=== PATIENT | female | born 1980 | race Caucasian/White ===

== ENCOUNTER 2023-03-04 11:35 | Outpatient (CLI) | payer BC, SELFPAY ==
--- NOTE | 2023-03-04 12:00 | CRLHL7_ITS ---
For Patients: As a result of the Century Cures Act, medical imaging exams and procedure reports are released immediately into your electronic medical record. You may view this report before your referring provider. If you have questions, please contact your health care provider. Clinical History: Bloating and diarrhea Radionuclide Dose: Nuclear medicine hepatobiliary scan with gallbladder ejection fraction post CCK protocol. 5.3 mCi 99m Tc Choletec; IV. 1.7 mcg Kinevac intravenously s. Comparison: None. Findings: Normal extraction and excretion of the radiopharmaceutical by the liver is present. There is prompt appearance of the common bile duct, followed by the gallbladder and small bowel. There is no enterogastric reflux. After the administration of CCK there is significant emptying of the gallbladder. Patient`s symptoms were not recorded. Gallbladder ejection fraction is 85 percent. Impression: Hyperkinetic gallbladder. Dictated by Brian Lou MD @ 03/04/2023 2:49:55 PM (Electronically Signed)
== END 2023-03-04 11:36 | disposition home or self-care (01) ==
LOC: NM 11:36
PROVIDERS: PCP Physician Assistant Medical; Visit Provider Physician Assistant Medical
DX: K52.9 Noninfective gastroenteritis and colitis, unspecified (principal); R14.0 Abdominal distension (gaseous)
CPT/HCPCS: 78227; A9537; J2805

== ENCOUNTER 2023-04-11 09:53 | Outpatient (CLI) | payer BC, SELFPAY | END 2023-04-11 09:54 | disposition home or self-care (01) | LOC: NFLDREF 04-15 10:38 | PROVIDERS: PCP Physician Assistant Medical; Referring Provider Physician Assistant Medical; Visit Provider Physician Assistant Medical | DX: K52.9 Noninfective gastroenteritis and colitis, unspecified (principal); R14.0 Abdominal distension (gaseous); Z13.220 Encounter for screening for lipoid disorders | CPT/HCPCS: 80053; 80061; 82150; 83690; 86258; 86364; 87338 ==

== ENCOUNTER 2023-04-18 12:46 | Outpatient (CLI) | payer BC, SELFPAY | END 2023-04-18 12:47 | disposition home or self-care (01) | LOC: NFLDREF 04-21 10:23 | PROVIDERS: PCP Physician Assistant Medical; Referring Provider Physician Assistant Medical; Visit Provider Physician Assistant Medical | DX: K52.9 Noninfective gastroenteritis and colitis, unspecified (principal); R14.0 Abdominal distension (gaseous) | CPT/HCPCS: 87338 ==

== ENCOUNTER 2023-05-16 11:14 | Outpatient (CLI) | payer BC, SELFPAY ==
--- NOTE | 2023-05-16 11:30 | MM_ITS ---
Patient: LIZBETH MEJIA Facility:?[facility] Patient ID:?[id number] Site Patient ID:?[id number]. Site :?1980 Study:?XRay-Breast Bilateral 3D-05/16/2023 11:41:03 AM Ordering Physician:Chitra Final Report: BILATERAL DIGITAL SCREENING MAMMOGRAM WITH TOMOSYNTHESIS AND COMPUTER-AIDED DETECTION CLINICAL HISTORY: Routine screening exam. COMPARISON: None. TECHNIQUE: Digital mammogram in CC and MLO projections including computer-aided detection (CAD). Tomosynthesis utilized. BREAST COMPOSITION: The breasts are extremely dense, which may limit the sensitivity of mammography. FINDINGS: RIGHT Breast: No suspicious findings. LEFT Breast: Asymmetric density upper outer quadrant 6 cm from the nipple. IMPRESSION: LEFT breast asymmetry/mass. RECOMMENDATIONS: Additional mammographic views of the LEFT breast including 3D spot compression CC/MLO. LEFT breast ultrasound may also be required. BI-RADS Category 0: Incomplete: Need Additional Imaging Evaluation and/or Prior Mammograms for Comparison [facility] will contact the patient for follow-up. A lay language report of this examination will be provided to the patient. Dictated by Damien Hill MD @ 05/19/2023 9:10:07 AM jj/Dictated by: Damien Hill MD @ 05/19/2023 9:10:00 AM Signed by:?Damien Hill MD @05/19/2023 11:14:52 AM (Electronic Signature)
== END 2023-05-16 11:15 | disposition home or self-care (01) ==
LOC: MAMMO 11:15
PROVIDERS: PCP Physician Assistant Medical; Visit Provider Physician Assistant Medical
DX: Z12.31 Encounter for screening mammogram for malignant neoplasm of breast (principal); N63.20 Unspecified lump in the left breast, unspecified quadrant
CPT/HCPCS: 77063; 77067

== ENCOUNTER 2023-06-04 09:37 | Outpatient (CLI) | payer BC, SELFPAY ==
--- NOTE | 2023-06-04 09:45 | MM_ITS ---
Patient: LIZBETH MEJIA Facility:?[facility] Patient ID:?[id number] Site Patient ID:?[id number]. Site :?1980 Study:?XRay-Breast Left 3D W/CAD-06/04/2023 10:04:18 AM Ordering Physician:?Yasmin Garza Final Report: DIGITAL DIAGNOSTIC LEFT MAMMOGRAM USING TOMOSYNTHESIS AND COMPUTER-AIDED DETECTION LEFT BREAST ULTRASOUND CLINICAL HISTORY: LEFT breast mass/asymmetry. COMPARISON: 05/16/2023. TECHNIQUE: Digital LEFT mammogram in two projections. Tomosynthesis and CAD utilized. Real-time ultrasound imaging of LEFT breast with imaging documentation. Scanning was performed by both the technologist and the radiologist. BREAST COMPOSITION: The breast is heterogeneously dense, which may obscure small masses. FINDINGS: 3D spot compression CC/MLO LEFT breast mammogram images submitted. Decreased conspicuity of the previously noted asymmetric density. No architectural distortion or suspicious calcifications. Targeted LEFT breast ultrasound performed at 2 o`clock 5 cm from the nipple. Dense fibroglandular tissue is present along with benign fibrocystic change. No suspicious findings. IMPRESSION: No evidence of malignancy. RECOMMENDATIONS: Annual BILATERAL screening mammography. Results and recommendations discussed with the patient. BI-RADS Category 2: Benign A lay language report of this examination will be provided to the patient. Dictated by Damien Hill MD @ 06/04/2023 11:39:30 AM jj/Dictated by: Damien Hill MD @ 06/04/2023 11:39:00 AM Signed by:?Damien Hill MD @06/04/2023 2:42:49 PM (Electronic Signature)
--- NOTE | 2023-06-04 10:15 | US_ITS ---
Patient: LIZBETH MEJIA Facility:?[facility] Patient ID:?[id number] Site Patient ID:?[id number]. Site :?1980 Study:?US-Breast Left -06/04/2023 10:09:54 AM Ordering Physician:OLMAN Final Report: PLEASE SEE DIGITAL DIAGNOSTIC LEFT MAMMOGRAM PERFORMED SAME DAY CRL:mazin retana/Dictated by: Damien Hill MD @ 06/04/2023 11:39:00 AM Signed by:?Damien Hill MD @06/04/2023 2:42:51 PM (Electronic Signature)
== END 2023-06-04 09:38 | disposition home or self-care (01) ==
LOC: MAMMO 09:38
PROVIDERS: PCP Physician Assistant Medical; Visit Provider Physician Assistant Medical
DX: N63.20 Unspecified lump in the left breast, unspecified quadrant (principal); R92.8 Other abnormal and inconclusive findings on diagnostic imaging of breast
CPT/HCPCS: 76642; 77065; G0279

== ENCOUNTER 2023-06-26 15:52 | Outpatient (CLI) | payer BC, SELFPAY ==
[2023-06-27 00:22] LABS: Chlamydia DNA Amplified* NOT DETECTED (No Detected); GC DNA Amplified* NOT DETECTED (No Detected)
== END 2023-06-26 15:53 | disposition home or self-care (01) ==
PROVIDERS: PCP Physician Assistant Medical; Visit Provider Physician Assistant Medical
DX: Z11.3 Encounter for screening for infections with a predominantly sexual mode of transmission (principal)
CPT/HCPCS: 87491; 87591

== ENCOUNTER 2024-11-02 14:39 | Outpatient (CLI) | payer BC, SELFPAY ==
--- NOTE | 2024-11-02 15:00 | CRLHL7_ITS ---
For Patients: As a result of the Century Cures Act, medical imaging exams and procedure reports are released immediately into your electronic medical record. You may view this report before your referring provider. If you have questions, please contact your health care provider. INDICATION: BILATERAL SCREENING MAMMOGRAM, ASYMPTOMATIC 43 Y/O FEMALE COMPARISON: 06/04/2023, 05/16/2023 TECHNIQUE: Digital mammogram in CC and MLO projections including computer-aided detection (CAD) and tomosynthesis. BREAST COMPOSITION: The breasts are heterogeneously dense, which may obscure small masses. FINDINGS: No suspicious findings. ASSESSMENT: BI-RADS 1 Negative RECOMMENDATION: Annual screening mammogram. A lay language report of this examination will be provided to the patient. Dictated by: Irina Brewer MD @ 11/03/2024 09:48:57 (Electronically Signed)
== END 2024-11-02 14:40 | disposition home or self-care (01) ==
LOC: MAMMO 14:39
PROVIDERS: PCP Physician Assistant Medical; Visit Provider Physician Assistant Medical
DX: Z12.31 Encounter for screening mammogram for malignant neoplasm of breast (principal); R92.333 Mammographic heterogeneous density, bilateral breasts
CPT/HCPCS: 77063; 77067

== ENCOUNTER 2024-12-02 13:29 | Outpatient (CLI) | payer BC, SELFPAY | END 2024-12-02 13:30 | disposition home or self-care (01) | PROVIDERS: PCP Physician Assistant Medical; Visit Provider Physician Assistant Medical | DX: Z00.00 Encounter for general adult medical examination without abnormal findings (principal) | CPT/HCPCS: 80053; 80061; 84443 ==

== ENCOUNTER 2025-01-07 11:28 | Outpatient (CLI) | payer BC, SELFPAY ==
--- NOTE | 2025-01-07 13:23 | P.ANES_ITS ---
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
--- NOTE | 2025-01-07 13:23 | W.ANESCHARGE ---
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
== END 2025-01-07 11:29 | disposition home or self-care (01) ==
LOC: OP CLINIC 11:28
PROVIDERS: PCP Physician Assistant Medical; Visit Provider Surgery
DX: K52.9 Noninfective gastroenteritis and colitis, unspecified (principal); R10.13 Epigastric pain; R14.0 Abdominal distension (gaseous); D12.3 Benign neoplasm of transverse colon; K64.4 Residual hemorrhoidal skin tags
CPT/HCPCS: 00813; 43239; 45380; 45385; 88305; J2704; J3490

== ENCOUNTER 2025-01-31 06:31 | Emergency (ER) | payer BC, SELFPAY ==
--- OUTSIDE RECORDS SUMMARY | 2025-01-24 08:35 | XMS_ITS | Continuity of Care Document ---
Author Organization [facility] Address [address] [address] [place] [address] Phone Care Team Providers Care Attic Blower Name Role Phone Michel Baez MD Unavailable Unavailabl e Advance Directives Directive Yes / No Effective Date File Name No Information Encounters Encounter Description Practice Location Reason(s) For Visit Diagnoses Date Provider Providers Copied on Encounter [facility], [address] [address], [place], [place], [id number], [place] tel:[phone] [facility] No Information Stepan Pearson. [address] [facility], [facility] [address], [place], [place], [id number], [place]. tel:[phone] Family History Family Member Type Diagnosis Age At Onset No Information Payers Payer name Insurance type Covered democrat ID Authoriza tion(s) No Information Social History Type Description Quantity Date Captured Comments Sex Female Smoking Status No Information Chief Complaint And Reason For Visit No Information Reason For Referral Reason For Referral No Information Plan Of Treatment Date Type Action Status Appointment Jenna Carbone BOOKED History Of Present Illness Encounter Date Complaint History Of Prese nt Illness No Information Functional Status Date Functional Assessmen t No Information Instructions Date Instruction Additional Infor mation No Information Assessments Type Assessment Date No Information Patient Care Teams Name Effective Dates (start - stop) Status Members No Information
--- OUTSIDE RECORDS SUMMARY | 2025-01-24 08:35 | XMS_ITS | Continuity of Care Document ---
Author Organization [facility] Address [address] [address] [place] [address] Phone Care Team Providers Care Assistant Manager Bilingual Name Role Phone Michel Baez MD Unavailable Unavailabl e Advance Directives Directive Yes / No Effective Date File Name No Information Encounters Encounter Description Practice Location Reason(s) For Visit Diagnoses Date Provider Providers Copied on Encounter [facility], [address] [address], [place], [place], [id number], [place] tel:[phone] [facility] No Information Stepan Pearson. [address] [facility], [facility] [address], [place], [place], [id number], [place]. tel:[phone] Family History Family Member Type Diagnosis Age At Onset No Information Payers Payer name Insurance type Covered alliance party ID Authoriza tion(s) No Information Social History [...]
--- OUTSIDE RECORDS SUMMARY | 2025-01-24 08:35 | XMS_ITS | Continuity of Care Document ---
Author Organization [facility] Address [address] [address] [place] [address] Phone Care Team Providers Care Freelance Copywriter Name Role Phone Michel Baez MD Unavailable Unavailabl e Advance Directives Directive Yes / No Effective Date File Name No Information Encounters Encounter Description Practice Location Reason(s) For Visit Diagnoses Date Provider Providers Copied on Encounter [facility], [address] [address], [place], [place], [id number], [place] tel:[phone] [facility] No Information Stepan Pearson. [address] [facility], [facility] [address], [place], [place], [id number], [place]. tel:[phone] Family History Family Member Type Diagnosis Age At Onset No Information Payers Payer name Insurance type Covered libertarian ID Authoriza tion(s) No Information Social History [...]
--- OUTSIDE RECORDS SUMMARY | 2025-01-24 08:35 | XMS_ITS | Continuity of Care Document ---
Author Organization [facility] Address [address] [address] [place] [address] Phone Care Team Providers Care Fruit Tester Name Role Phone Michel Baez MD Unavailable Unavailabl e Advance Directives Directive Yes / No Effective Date File Name No Information Encounters Encounter Description Practice Location Reason(s) For Visit Diagnoses Date Provider Providers Copied on Encounter [facility], [address] [address], [place], [place], [id number], [place] tel:[phone] [facility] No Information Stepan Pearson. [address] [facility], [facility] [address], [place], [place], [address], [place]. tel:[phone] Family History Family Member Type Diagnosis Age [...]
[2025-01-31] VITALS (7 sets, daily range): BP systolic 113–131; BP diastolic 72–82; PULSE 56–77; RESP 11–42; TEMP 36.7; O2SAT 98–100; BMI 28.3
--- NOTE | 2025-01-31 06:46 | ED.DIZZY ---
HPI - Dizziness General Time Seen by Provider: 06:46 <Filomena Dumont MD - Last Filed: 01/31/25 08:14> Date Seen: 01/31/25 <Filomena Dumont MD - Last Filed: 01/31/25 08:14> Chief Complaint: Dizziness/Vertigo <Filomena Dumont MD - Last Filed: 01/31/25 08:14> Stated Complaint: Dizziness, blurred vision <Filomena Dumont MD - Last Filed: 01/31/25 08:14> Time Seen by Provider: 01/31/25 06:45 <Filomena Dumont MD - Last Filed: 01/31/25 08:14> Source: patient <Filomena Dumont MD - Last Filed: 01/31/25 08:14> Mode of arrival: ambulatory <Filomena Dumont MD - Last Filed: 01/31/25 08:14> History of Present Illness HPI Narrative: Jenna is a 44 yo female who has a past medical history IBS who presents to the emergency department for evaluation of dizziness. Patient states that she woke up this morning around 5:30 a.m. to her alarm. Patient states when she woke up she noticed a little blurriness of her vision in her left eye as well as a little bit dizziness and unsteadiness. Patient reports that she has an extensive family history of strokes so came in for evaluation. Patient denies any headache, eye pain, vision loss, weakness, paresthesias, chest pain, shortness of breath, abdominal pain, nausea, vomiting, diarrhea. Patient reports some improvement of symptoms since arrival. Patient wears glasses. Patient does report that approximately 1 week ago she was started on 2 new medications including control pills as well as dicyclomine (for IBS). No other complaints. <Filomena Dumont MD - Last Filed: 01/31/25 08:14> Related Data Home Medications: Previous Rx's ?Medication ?Instructions ?Recorded desogestrel 0.15 mg-ethinyl 1 tab PO QDAY #84 tabs 01/21/25 estradiol 0.03 mg tablet (Apri) dicyclomine 10 mg capsule 10 mg PO TID PRN abdominal pain 11/07/25 #60 caps <Filomena Dumont MD - Last Filed: 01/31/25 08:14> Allergies/Adverse Reactions: Allergies Allergy/AdvReac Type Severity Reaction Status Date / Time No Known Drug Allergies Allergy Verified 01/31/25 06:48 <Filomena Dumont MD - Last Filed: 01/31/25 08:14> Review of Systems Narrative: Past medical history, past surgical history, medications, allergies, family history, and social history were reviewed with the patient. No additional pertinent items. A medically appropriate review of systems was performed with pertinent positives and negatives noted in HPI, all other systems negative. <Filomena Dumont MD - Last Filed: 01/31/25 08:14> PFSH PFS Medical History: Medical History (Updated 01/31/25 @ 08:14 by Filomena Dumont MD) On Depo-Provera for contraception ?Z30.42 - Encounter for surveillance of injectable contraceptive (ICD-10) Hx of ?Z87.59 - Personal history of other complications of , childbirth and the puerperium (ICD-10) <Filomena Dumont MD - Last Filed: 01/31/25 08:14> Surgical History: Surgical History (Updated 02/20/23 @ 15:45 by Yasmin Garza PA-C) Hx of wisdom tooth extraction ?K08.409 - Partial loss of teeth, unspecified cause, unspecified class (ICD-10) <Filomena Dumont MD - Last Filed: 01/31/25 08:14> Family History: Family History (Updated 12/02/24 @ 13:25 by Yasmin Garza PA-C) Mother No problems noted. Father High blood pressure Bone cancer, Onset Age: 73 Alcohol dependence Liver disease Aunt Breast cancer, Onset Age: 60 Brother Alcohol dependence <Filomena Dumont MD - Last Filed: 01/31/25 08:14> Social History: Social History (Updated 12/06/24 @ 09:45 by Ciera MILLER) Narrative: smoker (1 cigarettes daily). 16 yo-28 and then quit; started again 2021 Alcohol- 4 drinks per weekend. Denies recreational drugs (August 2022). 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[employer]) What is your current living situation?: I presently have a place to live Problems where you live: no known problems In the past 12 months, utilities in danger of being shut off: no In past 12 months, lack of transportation kept you from medical appts, meetings, work, or getting things needed for daily living: no In the past 12 mos, have been you worried that your food would run out before you had money to buy more?: never true In the past 12 mos, the food you bought just didn't last and you didn't have money to buy more?: never true Smoking Status: Current every day smoker Do you use any of these nicotine containing products: None Second hand tobacco smoke exposure: No How often do you have a drink containing alcohol: 2-4 times a month How often do you have six or more drinks on one occasion: Never AUDIT-C Alcohol total score: 2 Non-prescribed substance use: denies use Are you now , , , , never or living with a partner: Social isolation score (0-1 are the most socially isolated patients): 0 How often does anyone, including family, friends and others, physically hurt you: never How often does anyone, including family, friends and others, insult or talk down to you: never How often does anyone, including family, friends and others, threaten you with harm: never How often does anyone, including family, friends and others, scream or curse at you: never Gender Identity: female <Filomena Dumont MD - Last Filed: 01/31/25 08:14> Exam Narrative: Exam Narrative: General: Afebrile, in distress HEENT: Normocephalic, atraumatic, PERRL, EOMI, conjunctiva normal. Visual acuity bilateral 20/25; Left eye 20/30; Right eye 20/30, MMM Neck: non-tender, supple Cardio: regular rate. regular rhythm Resp: Normal work of breathing, no respiratory distress, lungs clear bilaterally, no wheezing, rhonchi, rales Chest/Back: no visual signs of trauma, no midline tenderness, no CVA tenderness Abdomen: soft, non distension, no tenderness, no peritoneal signs Neuro: alert and fully oriented. CN II-XII intact. Normal strength and sensation in all extremities. Normal gait. MSK: no deformities. Normal range of motion Integumentary/Skin: no rash visualized, normal color Psych: normal affect, normal behavior <Filomena Dumont MD - Last Filed: 01/31/25 08:14> Const: Vital Signs, click to edit/add: Vital Signs - 24 hr 01/31/25 06:45 01/31/25 08:13 Temperature 98.0 F Pulse Rate [Pulse Oximeter] 77 56 L Respiratory Rate 16 16 Blood Pressure [Ri ght Upper Arm] 131/82 113/72 Pulse Oximetry 100 98 Oxygen Delivery Me thod Room Air Room Air <Filomena Dumont MD - Last Filed: 01/31/25 08:14> Vital Signs, click to edit/add: Vital Signs - 24 hr 01/31/25 06:45 01/31/25 08:13 Temperature 98.0 F Pulse Rate [Pulse Oximeter] 77 56 L Respiratory Rate 16 16 Blood Pressure [Ri ght Upper Arm] 131/82 113/72 Pulse Oximetry 100 98 Oxygen Delivery Me thod Room Air Room Air <Adrienne Mary MD - Last Filed: 01/31/25 10:06> Course Reevaluation(s) Time of Reevaluation #1: 09:55 <Adrienne Mary MD - Last Filed: 01/31/25 10:06> Reevaluation #1: Patient is updated on her normal CT angiography an MR imaging. We are going to plan as Dr. Dumont recommended, discharged with outpatient follow-up with dilated eye exam/optometry or ophthalmology exam. <Adrienne Mary MD - Last Filed: 01/31/25 10:06> Vital Signs Vital signs: Initial Vital Signs Temperature 98.0 F 01/31/25 06:45 Temperature Source Temporal Artery Scan 01/31/25 06:45 Pulse Rate 77 01/31/25 06:45 Respiratory Rate 16 01/31/25 06:45 Blood Pressure 131/82 01/31/25 06:45 Blood Pressure Mean 98 01/31/25 06:45 Blood Pressure Position Sitting 01/31/25 06:45 Pulse Oximetry 100 01/31/25 06:45 Oxygen Delivery Method Room Air 01/31/25 06:45 Vital Signs Temperature 98.0 F 01/31/25 06:45 Pulse Rate 77 01/31/25 06:45 Respiratory Rate 16 01/31/25 06:45 Blood Pressure 131/82 01/31/25 06:45 Pulse Oximetry 100 01/31/25 06:45 Oxygen Delivery Method Room Air 01/31/25 06:45 Temperature 98.0 F 01/31/25 06:45 Pulse Rate 56 L 01/31/25 08:13 Respiratory Rate 16 01/31/25 08:13 Blood Pressure 113/72 01/31/25 08:13 Pulse Oximetry 98 01/31/25 08:13 Oxygen Delivery Method Room Air 01/31/25 08:13 <Filomena Dumont MD - Last Filed: 01/31/25 08:14> Initial Vital Signs Temperature 98.0 F 01/31/25 06:45 Temperature Source Temporal Artery Scan 01/31/25 06:45 Pulse Rate 77 01/31/25 06:45 Respiratory Rate 16 01/31/25 06:45 Blood Pressure 131/82 01/31/25 06:45 Blood Pressure Mean 98 01/31/25 06:45 Blood Pressure Position Sitting 01/31/25 06:45 Pulse Oximetry 100 01/31/25 06:45 Oxygen Delivery Method Room Air 01/31/25 06:45 Vital Signs Temperature 98.0 F 01/31/25 06:45 Pulse Rate 77 01/31/25 06:45 Respiratory Rate 16 01/31/25 06:45 Blood Pressure 131/82 01/31/25 06:45 Pulse Oximetry 100 01/31/25 06:45 Oxygen Delivery Method Room Air 01/31/25 06:45 Temperature 98.0 F 01/31/25 06:45 Pulse Rate 56 L 01/31/25 08:13 Respiratory Rate 16 01/31/25 08:13 Blood Pressure 113/72 01/31/25 08:13 Pulse Oximetry 98 01/31/25 08:13 Oxygen Delivery Method Room Air 01/31/25 08:13 <Adrienne Mary MD - Last Filed: 01/31/25 10:06> MDM - Dizziness MDM Narrative Medical decision making narrative: Jenna is a 44 yo female who presents to the emergency department for evaluation of dizziness. Upon arrival patient is nontoxic appearing, afebrile, in distress. Differential diagnosis includes but is not limited to CVA versus intracranial hemorrhage versus TIA versus metabolic/electrolyte versus medication side effect versus migraine among others. Upon arrival EKG, comprehensive labs, CT imaging performed. I reviewed EKG which demonstrates normal sinus rhythm with sinus arrhythmia, normal axis, ventricular rate of 63 beats per minute, QTC 411, no acute ischemic change, no prior EKG to compare to. Comprehensive labs unremarkable with no leukocytosis white blood cell count 5.8, hemoglobin 15, INR 0.96, no acute metabolic electrolyte abnormality, negative troponin. I personally reviewed and interpreted CT which demonstrates no acute intracranial hemorrhage, no evidence of mass effect, hemorrhage, edema. I discussed results with patient and on re-evaluation patient is resting comfortably, reports improvement/resolution of symptoms. Will proceed for further stroke/TIA evaluation with CTA of the head and neck as well as MRI. Patient signed out to morning provider pending imaging, re-evaluation, final disposition. <Filomena Dumont MD - Last Filed: 01/31/25 08:14> Medical Records Attestation: I reviewed the patient's medical records. <Filomena Dumont MD - Last Filed: 01/31/25 08:14> Lab Data Attestation: I reviewed the patient's lab results. <Filomena Dumont MD - Last Filed: 01/31/25 08:14> Labs: Lab Results 01/31/25 Range/Units 07:19 WBC 5.87 (4.50-11.00) K/uL RBC 4.92 (4.00-5.20) m/uL Hgb 15.0 (12.0-16.0) gm/dL Hct 45.9 (33.0-51.0) % MCV 93 (80-100) fL MCH 31 (26-34) pg MCHC 33 (32-36) gm/dL RDW Coeff of Yan 12.9 (11.5-15.5) % Plt Count 265 (140-440) K/uL Neut % (Auto) 62.6 (42.0-72.0) % Lymph % (Auto) 23.7 (20-44) % [place] % (Auto) 6.3 (0.0-11.0) % Eos % (Auto) 6.1 (0.0-7.0) % Baso % (Auto) 1.0 (0.0-3.0) % Neut # (Auto) 3.67 (1.7-7.0) K/uL Lymph # (Auto) 1.39 (0.90-2.90) K/uL [place] # (Auto) 0.40 (0.00-0.90) K/UL Eos # (Auto) 0.36 (0.00-0.50) K/uL Baso # (Auto) 0.06 (0.00-0.30) K/uL Abs Immat Gran (auto) 0.02 (0.00-0.30) K/uL Imm/Tot Granulo (auto) 0.3 % INR 0.96 (0.91-1.10) Sodium 140 (135-149) mmol/L Potassium 4.3 (3.6-5.1) mmol/L Chloride 108 (96-114) mmol/L Carbon Dioxide 23 (20-32) mmol/L Anion Gap 9 (7-15) mEq/L BUN 5 (5-24) mg/dL Creatinine 0.7 (0.5-1.5) mg/dL Estimated Creat Clear 86.72 Estimated GFR 108 ml/min Glucose 89 (60-115) mg/dL Calcium 9.3 (8.4-10.6) mg/dL Total Bilirubin 0.8 (0.1-1.5) mg/dL AST 33 (12-35) U/L ALT 18 (4-35) U/L Alkaline Phosphatase 58 (40-150) U/L Troponin I < 0.01 (0.01-0.04) ng/mL Total Protein 7.7 (6.0-8.3) g/dL Albumin 4.5 (3.3-5.0) g/dL <Filomena Dumont MD - Last Filed: 01/31/25 08:14> Lab Results 01/31/25 Range/Units 07:19 WBC 5.87 (4.50-11.00) K/uL RBC 4.92 (4.00-5.20) m/uL Hgb 15.0 (12.0-16.0) gm/dL Hct 45.9 (33.0-51.0) % MCV 93 (80-100) fL MCH 31 (26-34) pg MCHC 33 (32-36) gm/dL RDW Coeff of Yan 12.9 (11.5-15.5) % Plt Count 265 (140-440) K/uL Neut % (Auto) 62.6 (42.0-72.0) % Lymph % (Auto) 23.7 (20-44) % [place] % (Auto) 6.3 (0.0-11.0) % Eos % (Auto) 6.1 (0.0-7.0) % Baso % (Auto) 1.0 (0.0-3.0) % Neut # (Auto) 3.67 (1.7-7.0) K/uL Lymph # (Auto) 1.39 (0.90-2.90) K/uL [place] # (Auto) 0.40 (0.00-0.90) K/UL Eos # (Auto) 0.36 (0.00-0.50) K/uL Baso # (Auto) 0.06 (0.00-0.30) K/uL Abs Immat Gran (auto) 0.02 (0.00-0.30) K/uL Imm/Tot Granulo (auto) 0.3 % INR 0.96 (0.91-1.10) Sodium 140 (135-149) mmol/L Potassium 4.3 (3.6-5.1) mmol/L Chloride 108 (96-114) mmol/L Carbon Dioxide 23 (20-32) mmol/L Anion Gap 9 (7-15) mEq/L BUN 5 (5-24) mg/dL Creatinine 0.7 (0.5-1.5) mg/dL Estimated Creat Clear 86.72 Estimated GFR 108 ml/min Glucose 89 (60-115) mg/dL Calcium 9.3 (8.4-10.6) mg/dL Total Bilirubin 0.8 (0.1-1.5) mg/dL AST 33 (12-35) U/L ALT 18 (4-35) U/L Alkaline Phosphatase 58 (40-150) U/L Troponin I < 0.01 (0.01-0.04) ng/mL Total Protein 7.7 (6.0-8.3) g/dL Albumin 4.5 (3.3-5.0) g/dL <Adrienne Mary MD - Last Filed: 01/31/25 10:06> Imaging Data CT scan - head: Attestation: I have reviewed the pertinent imaging results. <Filomena Dumont MD - Last Filed: 01/31/25 08:14> Radiologist's impression: INDICATION: Dizziness. Visual changes. COMPARISON: None TECHNIQUE: CT examination of the head was performed as axial sections without intravenous contrast. Images were obtained from the vertex of the skull through the skull base. Please note that all CT scans at this facility use dose modulation, iterative reconstruction, and/or weight-based dosing when appropriate to reduce radiation dose to as low as reasonably achievable. FINDINGS: The brain shows no sign of mass lesion, mass effect, hemorrhage, or edema. The ventricles and sulci are normal in appearance for the patient`s age. The visualized portions of the orbits are normal in appearance. The osseous structures are normal in their appearance with no sign of abnormality in the skull base or calvarium. IMPRESSION: Normal unenhanced head CT. Please note that all CT scans at this facility use dose modulation, iterative reconstruction, and/or weight-based dosing when appropriate to reduce radiation dose to as low as reasonably achievable. Dictated by Michel Mckee MD @ 01/31/2025 7:43:38 AM <Filomena Dumont MD - Last Filed: 01/31/25 08:14> CT- Other: Attestation: I have reviewed the pertinent imaging results. <Adrienne Mary MD - Last Filed: 01/31/25 10:06> Radiologist's impression: Patient: JENNA MEJIA Facility:?[facility] Patient ID:?[id number] Site Patient ID:?[id number]. Site :?1980 Study:?CT-Neck Angio W/IV-01/31/2025 9:09:55 AM Ordering Physician:Mauricio Deleon Preliminary Report: COMPARISON: None. IMPRESSION: CTA head: No large vessel occlusion or significant aneurysm. CTA neck: No sign of dissection or critical stenosis. Dictated by Pamela Hargrove MD @ 01/31/2025 9:30:46 AM Read by:?Pamela Hargrove MD @01/31/2025 9:31:13 AM <Adrienne Mary MD - Last Filed: 01/31/25 10:06> MR Brain: Attestation: I have reviewed the pertinent imaging results. <Adrienne Mary MD - Last Filed: 01/31/25 10:06> Radiologist's impression: Patient: JENNA MEJIA Facility:?[facility] Patient ID:?[id number] Site Patient ID:?[id number]. Site :?1980 Study:?MRI-Head WO-01/31/2025 9:34:42 AM Ordering Physician:Mauricio Deleon Final Report: Indication: episode L visual disturbance, dizziness Technique: Noncontrast sagittal T1 weighted, axial FLAIR, axial T2 weighted, and axial diffusion weighted sequences are provided. Comparison: CT 01/31/2025 Findings: The ventricles, sulci and gyri are normal size, shape and contour for age. The midline structures are centrally located with no evidence of shift. The pituitary gland, optic chiasm, pineal gland and cerebellar tonsils are unremarkable. There are no suspicious intra or extra-axial fluid collections. No region of restricted diffusion. Expected flow voids in the cavernous carotids and basilar artery. Impression: Unremarkable noncontrast MRI of the head. Dictated by Damien Bowens MD @ 01/31/2025 9:39:44 AM (Electronic Signature) <Adrienne Mary MD - Last Filed: 01/31/25 10:06> Discharge Plan Discharge Clinical Impression: Blurred vision, left eye, Dizziness <Filomena Dumont MD - Last Filed: 01/31/25 08:14> Patient Disposition: Home, Self-Care <Filomena Dumont MD - Last Filed: 01/31/25 08:14> Condition: Stable <Filomena Dumont MD - Last Filed: 01/31/25 08:14> Instructions: Blurred Vision (ED), Dizziness (ED) <Filomena Dumont MD - Last Filed: 01/31/25 08:14> Additional Instructions: Your CT imaging an MR imaging of the brain and vessels are not showing any etiology as the cause of your symptoms. It is recommended that you get a follow-up Optometry or Ophthalmology exam, call provider of your choice. <Filomena Dumont MD - Last Filed: 01/31/25 08:14> Prescriptions: No Action desogestrel-ethinyl estradiol [Apri] 0.15-0.03 mg tablet 1 tab PO QDAY Qty: 84 0RF dicyclomine 10 mg capsule 10 mg PO TID PRN (Reason: abdominal pain) Qty: 60 1RF Rx Instructions: one capsule 3 times daily for bowel spasm <Filomena Dumont MD - Last Filed: 01/31/25 08:14> Follow Up/Referrals: Yasmin Garza PA-C [Primary Care Provider, Family Practice] <Filomena Dumont MD - Last Filed: 01/31/25 08:14> Stand Alone Forms: MyHealth Info Instructions <Filomena Dumont MD - Last Filed: 01/31/25 08:14>
--- NOTE | 2025-01-31 07:12 | CRLHL7_ITS ---
For Patients: As a result of the Century Cures Act, medical imaging exams and procedure reports are released immediately into your electronic medical record. You may view this report before your referring provider. If you have questions, please contact your health care provider. INDICATION: Dizziness. Visual changes. COMPARISON: None TECHNIQUE: CT examination of the head was performed as axial sections without intravenous contrast. Images were obtained from the vertex of the skull through the skull base. Please note that all CT scans at this facility use dose modulation, iterative reconstruction, and/or weight-based dosing when appropriate to reduce radiation dose to as low as reasonably achievable. FINDINGS: The brain shows no sign of mass lesion, mass effect, hemorrhage, or edema. The ventricles and sulci are normal in appearance for the patient`s age. The visualized portions of the orbits are normal in appearance. The osseous structures are normal in their appearance with no sign of abnormality in the skull base or calvarium. IMPRESSION: Normal unenhanced head CT. Please note that all CT scans at this facility use dose modulation, iterative reconstruction, and/or weight-based dosing when appropriate to reduce radiation dose to as low as reasonably achievable. Dictated by Michel Mckee MD @ 01/31/2025 7:43:38 AM (Electronically Signed)
[2025-01-31 07:24] LABS: Hematocrit* 45.9 % (33.0-51.0); Hemoglobin* 15.0 gm/dL (12.0-16.0); Immature Granulocytes Abs Auto 0.02 K/uL (0.00-0.30); Immature Granulocytes Pct Auto 0.3 %; Lymphocytes Absolute Auto 1.39 K/uL (0.90-2.90); Mean Corpuscular HGB Conc 33 gm/dL (32-36); Mean Corpuscular Hemoglobin 31 pg (26-34); Mean Corpuscular Volume 93 fL (80-100); RDW Coefficient of Variation % 12.9 % (11.5-15.5); Red Blood Count* 4.92 m/uL (4.00-5.20); White Blood Count* 5.87 K/uL (4.50-11.00)
[2025-01-31 07:26] LABS: Slide Review Reflex No
[2025-01-31 07:41] LABS: Albumin* 4.5 g/dL (3.3-5.0); Chloride* 108 mmol/L (96-114)
[2025-01-31 07:42] LABS: Potassium* 4.3 mmol/L (3.6-5.1); Sodium* 140 mmol/L (135-149)
[2025-01-31 07:44] LABS: Alanine Aminotransferase* 18 U/L (4-35); Anion Gap 9 mEq/L (7-15); Aspartate Amino Transferase* 33 U/L (12-35); Blood Urea Nitrogen* 5 mg/dL (5-24); Carbon Dioxide* 23 mmol/L (20-32); Creatinine* 0.7 mg/dL (0.5-1.5); Est. Creatinine Clearance* 86.72; Estimated Glomerular Filt Rate 108 ml/min; INR 0.96 (0.91-1.10); Prothrombin Time 13.6 Seconds
[2025-01-31 07:45] LABS: Alkaline Phosphatase* 58 U/L (40-150); Bilirubin Total* 0.8 mg/dL (0.1-1.5); Calcium* 9.3 mg/dL (8.4-10.6); Glucose* 89 mg/dL (60-115); Total Protein* 7.7 g/dL (6.0-8.3)
--- NOTE | 2025-01-31 08:08 | CT_ITS ---
Patient: LIZBETH MEJIA Facility:?[facility] Patient ID:?[id number] Site Patient ID:?[id number]. Site :?1980 Study:?CT-Neck Angio W/IV-01/31/2025 9:09:55 AM Ordering Physician:Mauricio Deleon Final Report: DATE: 01/31/2025 CLINICAL HISTORY: Patient with dizziness and visual disturbances. TECHNIQUE: Standard helical CT image acquisition through the head and neck was performed after intravenous contrast bolus enhancement. 2D and 3D MIP images for post- processing were performed and interpreted on an independent workstation and 3D images were permanently archived. COMPARISON: CT same day. FINDINGS: The origins of the great vessels from the aortic arch are patent. The origin of the right vertebral artery is patent. The origin of the left vertebral artery is patent. The common carotid arteries are patent There is no stenosis at the origin of the right internal carotid artery. There is no stenosis at the origin of the left internal carotid artery. The rest of the cervical segments of the internal carotid arteries are patent up to their intracranial segments. The intracranial segments of the internal carotid arteries are patent. The left vertebral artery is dominant. The cervical segments of the vertebral arteries are patent. The intracranial segments of the vertebral arteries are patent. The middle cerebral arteries are normal without aneurysm or proximal occlusion identified. The anterior cerebral arteries are normal without aneurysm or proximal occlusion identified. The anterior communicating artery is well visualized and appears normal. The basilar artery is normal without aneurysm or occlusion. The posterior cerebral arteries are normal without aneurysm or proximal occlusion. There is normal opacification of major intracranial venous structures. The visualized lung apices are unremarkable The thyroid gland is unremarkable. The soft tissues of the neck are unremarkable. There are degenerative changes in the cervical spine. IMPRESSION: Normal CT angiogram of the head and neck. Please note that all CT scans at this facility use dose modulation, iterative reconstruction, and/or weight-based dosing when appropriate to reduce radiation dose to as low as reasonably achievable. Dictated by Veronica Coley MD @ 01/31/2025 6:17:18 PM (Electronic Signature)
--- NOTE | 2025-01-31 08:08 | CRLHL7_ITS ---
For Patients: As a result of the Century Cures Act, medical imaging exams and procedure reports are released immediately into your electronic medical record. You may view this report before your referring provider. If you have questions, please contact your health care provider. Indication: episode L visual disturbance, dizziness Technique: Noncontrast sagittal T1 weighted, axial FLAIR, axial T2 weighted, and axial diffusion weighted sequences are provided. Comparison: CT 01/31/2025 Findings: The ventricles, sulci and gyri are normal size, shape and contour for age. The midline structures are centrally located with no evidence of shift. The pituitary gland, optic chiasm, pineal gland and cerebellar tonsils are unremarkable. There are no suspicious intra or extra-axial fluid collections. No region of restricted diffusion. Expected flow voids in the cavernous carotids and basilar artery. Impression: Unremarkable noncontrast MRI of the head. Dictated by Damien Bowens MD @ 01/31/2025 9:39:44 AM (Electronically Signed)
--- NOTE | 2025-01-31 08:08 | CT_ITS ---
Patient: LIZBETH MEJIA Facility:?[facility] Patient ID:?[id number] Site Patient ID:?[id number]. Site :?[id number] Study:?CT-Head Angio W/IV-01/31/2025 9:10:23 AM Ordering Physician:Mauricio Deleon Final Report: DATE: 01/31/2025 CLINICAL HISTORY: Patient with dizziness and visual disturbances. TECHNIQUE: Standard helical CT image acquisition through the head and neck was performed after intravenous contrast bolus enhancement. 2D and 3D MIP images for post- processing were performed and interpreted on an independent workstation and 3D images were permanently archived. COMPARISON: CT same day. FINDINGS: The origins of the great vessels from the aortic arch are patent. The origin of the right vertebral artery is patent. The origin of the left vertebral artery is patent. The common carotid arteries are patent There is no stenosis at the origin of the right internal carotid artery. There is no stenosis at the origin of the left internal carotid artery. The rest of the cervical segments of the internal carotid arteries are patent up to their intracranial segments. The intracranial segments of the internal carotid arteries are patent. The left vertebral artery is dominant. The cervical segments of the vertebral arteries are patent. The intracranial segments of the vertebral arteries are patent. The middle cerebral arteries are normal without aneurysm or proximal occlusion identified. The anterior cerebral arteries are normal without aneurysm or proximal occlusion identified. The anterior communicating artery is well visualized and appears normal. The basilar artery is normal without aneurysm or occlusion. The posterior cerebral arteries are normal without aneurysm or proximal occlusion. There is normal opacification of major intracranial venous structures. The visualized lung apices are unremarkable The thyroid gland is unremarkable. The soft tissues of the neck are unremarkable. There are degenerative changes in the cervical spine. IMPRESSION: Normal CT angiogram of the head and neck. Please note that all CT scans at this facility use dose modulation, iterative reconstruction, and/or weight-based dosing when appropriate to reduce radiation dose to as low as reasonably achievable. Dictated by Veronica Coley MD @ 01/31/2025 6:16:41 PM (Electronic Signature)
== END 2025-01-31 10:10 | disposition home or self-care (01) ==
PROVIDERS: Emergency Medicine; Emergency Provider Family Medicine; PCP Physician Assistant Medical
DX: H53.8 Other visual disturbances (principal); R42 Dizziness and giddiness
CPT/HCPCS: 36415; 70450; 70496; 70498; 70551; 80053; 84484; 85025; 85610; 93005; 99285; Q9967